=== PATIENT | male | born 1960 | race Caucasian/White ===

== ENCOUNTER 2017-03-28 10:13 | Emergency (ER) | payer OTHER ==
[~2017-03-28] VITALS: Ht 180.3 cm; Wt 70.6 kg
[2017-03-28 10:15] VITALS: BP 120/74
[2017-03-28] MEDS ORDERED: DIPH,PERTUSS(ACELL),TET VAC/PF 0.5 ML IM-VACC ONE ×2 (11:00→11:05)
[2017-03-28 11:55] LABS: HIV 1&2 ANTIBODY SCREEN Nonreactive (Nonreactive); HIV-1 p24 ANTIGEN Nonreactive (Nonreactive)
[2017-03-29 07:44] LABS: HEP B SURF. AB < 3.1 mIU/mL (0.0-10.0)
[2017-03-29 08:21] LABS: HEPATITIS C VIRUS ANTIBODY Nonreactive (Nonreactive)
[2017-04-13] MEDS ORDERED: PANT40TA3 PO (08:20)
[2017-04-13] MEDS ORDERED: HYDR-3240 PO (08:22)
== END 2017-03-28 11:20 | disposition home or self-care (01) ==
LOC: ED 11:13
DX: S61.234A Puncture wound without foreign body of right ring finger without damage to nail, initial encounter (principal); W26.8XXA Contact with other sharp object(s), not elsewhere classified, initial encounter; Y93.89 Activity, other specified; Y92.89 Other specified places as the place of occurrence of the external cause; Y99.8 Other external cause status; J44.9 Chronic obstructive pulmonary disease, unspecified
CPT/HCPCS: 36415; 86703; 86705; 86706; 86803; 87340; 87899; 90471; 90715; 99284; G0435

== ENCOUNTER 2019-02-27 18:43 | Emergency (ER) | payer SELFPAY ==
[~2019-02-27] VITALS: Ht 180.3 cm; Wt 77.6 kg
[~2019-02-27 18:43] MED LIST: HYDR-3240 PO; PANT40TA3 PO
[2019-02-27 19:12] LABS: BASOPHILS # (AUTO) 0.05 x10^3/uL (0-0.1); BASOPHILS % (AUTO) 1 % (0-1); EOSINOPHILS % (AUTO) 1 % (1-7); LYMPHOCYTES # (AUTO) 3.15 x10^3/uL (1-3.4); LYMPHOCYTES % (AUTO) 40 % (22-44); MD NO; MEAN CORPUSCULAR HEMOGLOBIN 31.3 pg (27.5-34.5); MEAN CORPUSCULAR HGB CONC 34.1 g/dL (33.2-36.2); MEAN CORPUSCULAR VOLUME 91.8 fL (81-97); MEAN PLATELET VOLUME 7.4 fL (7.4-10.4); MONOCYTES # (AUTO) 0.65 x10^3/uL (0.2-0.8); MONOCYTES % (AUTO) 8 % (2-9); NEUTROPHILS # (AUTO) 3.98 x10^3/uL (1.8-6.8); NEUTROPHILS % (AUTO) 50 % (42-75); PLATELET COUNT 361 x10^3/uL (130-400); RED BLOOD COUNT 4.71 x10^6/uL (4.38-5.82); RED CELL DISTRIBUTION WIDTH 14.9 % (9.4-14.8)
[2019-02-27 19:22] LABS: ALANINE AMINOTRANSFERASE 25 U/L (12-78); ALBUMIN 3.5 g/dL (3.4-5.0); ANION GAP 3 mmol/L (5-15); CALCIUM 8.6 mg/dL (8.5-10.1); CHLORIDE 107 mmol/L (98-107); CREATININE 0.85 mg/dL (0.7-1.3)
[2019-02-27 19:24] LABS: ALKALINE PHOSPHATASE 81 U/L (45-117); BILIRUBIN,TOTAL 0.1 mg/dL (0.2-1.0); TOTAL PROTEIN 7.3 g/dL (6.4-8.2)
--- NOTE | 2019-02-27 19:30 | NUR ---
PT TO ROOM FROM LOBBY
[2019-02-27 19:36] LABS: MICROSCOPIC NOT IND
[2019-02-27 19:40] LABS: CULTURE INDICATED? NO
--- NOTE | 2019-02-27 19:41 | NUR ---
PT PRESENTS TO ED STATING "[facility] SW[facility]LLEN LIVER LAST WEEK BUT I DIDN'T WANT TO STAY" - C/O RIGHT UPPER ABD PAIN RADIATING TO RIGHT UPPER RIBCAGE AND RIGHT MIDLINE BACK. SX ONSET 2 WEEKS AGO. PT DENIES INJURY/TRAUMA. DENIES HX CIRRHOSIS, HEPATITIS. STATES HE IS NOT A HEAVY DRINKER, "USED TO BE"; TWO COCKTAILS YESETERDAY. PT STATES [facility] TOLD [facility] HE HAD PANCREATITIS. PT ATTACHED TO ALL MONITORS. S/O AT BEDSIDE. CALL LIGHT IN REACH. AWAITING US AND UA RESULTS AT THIS TIME.
--- NOTE | 2019-02-27 20:00 | NUR ---
PT TO US AT THIS TIME.
[2019-02-27] MEDS ORDERED: MAALOX/HYOSCYAMINE/LIDOCAINE 45 ML BTL ONE (20:44)
[2019-02-27] MEDS ORDERED: MAALOX/HYOSCYAMINE/LIDOCAINE 45 ML BTL PO ONE (21:00)
--- NOTE | 2019-02-27 21:00 | NUR ---
pt medicated per emar, tolerated well. pt is a&o, resps even and unlabored, nadn. awaiting further orders at this time.
[2019-02-27 22:00] VITALS: BP 100/67
--- NOTE | 2019-02-27 22:10 | NUR ---
cxr was not read by radiology at time of dc, xray read by provider prior to dc. pt given dc instructions and script, educated regarding rx for prilosec and zofran. pt a&o, resps even and unlabored. pt amb to dc desk with steady gait, no complaint at dc. no n/v at dc. all questions answered.
== END 2019-02-27 22:09 | disposition home or self-care (01) ==
LOC: ED 20:23
DX: K29.20 Alcoholic gastritis without bleeding (principal); F10.10 Alcohol abuse, uncomplicated; J44.9 Chronic obstructive pulmonary disease, unspecified
CPT/HCPCS: 36415; 71046; 76700; 80053; 81003; 83690; 85025; 93005; 99284

== ENCOUNTER 2019-09-17 11:02 | Emergency (ER) | payer OTHER ==
[~2019-09-17] VITALS: Ht 180.3 cm; Wt 77.3 kg
[2019-09-17 11:05] VITALS: BP 121/73
[2019-09-17 11:55] LABS: BASOPHILS # (AUTO) 0.04 x10^3/uL (0-0.1); BASOPHILS % (AUTO) 1 % (0-1); EOSINOPHILS # (AUTO) 0.07 x10^3/uL (0-0.4); EOSINOPHILS % (AUTO) 1 % (1-7); LYMPHOCYTES # (AUTO) 1.92 x10^3/uL (1-3.4); LYMPHOCYTES % (AUTO) 24 % (22-44); MD NO; MEAN CORPUSCULAR HEMOGLOBIN 31.5 pg (27.5-34.5); MEAN CORPUSCULAR HGB CONC 33.2 g/dL (33.2-36.2); MEAN CORPUSCULAR VOLUME 94.8 fL (81-97); MEAN PLATELET VOLUME 7.8 fL (7.4-10.4); MONOCYTES # (AUTO) 0.73 x10^3/uL (0.2-0.8); MONOCYTES % (AUTO) 9 % (2-9); NEUTROPHILS # (AUTO) 5.13 x10^3/uL (1.8-6.8); NEUTROPHILS % (AUTO) 65 % (42-75); PLATELET COUNT 328 x10^3/uL (130-400); RED BLOOD COUNT 4.65 x10^6/uL (4.38-5.82); RED CELL DISTRIBUTION WIDTH 14.1 % (9.4-14.8)
[2019-09-17] MEDS ORDERED: NEOSPORIN OINT. PKT 1 PACKET ONE (11:55)
== END 2019-09-17 12:58 | disposition home or self-care (01) ==
LOC: ED 12:50
DX: S60.311A Abrasion of right thumb, initial encounter (principal); L03.011 Cellulitis of right finger; J44.9 Chronic obstructive pulmonary disease, unspecified; F17.210 Nicotine dependence, cigarettes, uncomplicated; X58.XXXA Exposure to other specified factors, initial encounter; Y93.89 Activity, other specified; Y92.89 Other specified places as the place of occurrence of the external cause; Y99.8 Other external cause status
CPT/HCPCS: 29130; 36415; 85025; 99284

== ENCOUNTER 2019-11-30 19:28 | Emergency (ER) | payer OTHER ==
[~2019-11-30] VITALS: Ht 180.3 cm; Wt 80.3 kg
[2019-11-30 19:49] VITALS: BP 118/80
== END 2019-11-30 20:41 | disposition home or self-care (01) ==
LOC: ED 20:30
DX: K08.89 Other specified disorders of teeth and supporting structures (principal); F17.210 Nicotine dependence, cigarettes, uncomplicated
CPT/HCPCS: 99283; 99406

== ENCOUNTER 2019-12-13 10:11 | Emergency (ER) | payer SELFPAY ==
[~2019-12-13] VITALS: Ht 180.3 cm; Wt 77.9 kg
--- NOTE | 2019-12-13 11:09 | NUR ---
PT AMBULATED TO ROOM 35 PER PEDIS. PT C/O DENTAL PAIN. PT HAS BEEN TREATED WITH PCN FOR THIS TOOTH PAIN, BUT HAS BEEN UNABLE TO PAY FOR A DENTAL VISIT. PT PLANS TO VISIT DENTIST WHEN HIS TAX MONEY COMES IN. PT IS A/OX4, APPEARS IN [facility], ONLY HEALTH HISTORY IS PEPTIC ULCERS. PT WAS GIVEN NORCO FOR THIS PAIN, BUT DOES NOT TAKE IT. PT IS REQUESTING ANTIBIOTICS ONLY HE THINKS MOTRIN HAS BEEN WORKING EFFECTIVELY FOR HIS PAIN. PT AT BEDSIDE. MD IN TO ASSESS PATIENT AND DISCUSS POC. MD DISCUSSED NUMEROUS OPTIONS OF PLACES THAT CAN HELP WITH HIS TOOTH PROBLEM AND HELP WITH PAYING FOR ANTIBIOTIC. MD WILL GIVE FIRST DOSE OF ANTIBIOTIC IN ED AND SEND HOME PRESCRIPTION. PT VERBALIZES UNDERSTANDING OF POC, AND AGREES WITH POC.
[2019-12-13] MEDS ORDERED: PANT40GR PO (11:15)
[2019-12-13] MEDS ORDERED: CLINDAMYCIN 300 MG CAPSULE ONE (11:19)
[2019-12-13 11:29] VITALS: BP 140/88
[2019-12-13] MEDS ORDERED: CLINDAMYCIN 300 MG CAPSULE PO ONE (11:30)
--- NOTE | 2019-12-13 11:31 | NUR ---
PT GIVEN ANTIBIOTIC. RN DISCUSSED RATIONALE AND SIDE EFFECTS OF MEDICATIONS. ENCOURAGED PATIENT TO TAKE ANTIBIOTIC WITH FOOD DUE TO HIS ULCER PROBLEMS. DISCHARGE INSTRUCTIONS GIVEN TO PATIENT WITH ONE PRESCRIPTION. PT TEACHES BACK USE OF CLINDAMYCIN AND POSSIBLE SIDE EFFECTS. PT TEACHES BACK IMPORTANCE OF TAKING MEDICATION WITH FOOD AND TO TAKE ALL MEDICATION UNTIL FINISHED. PT TEACHES BACK ON PUBLIC INFORMATION THAT WAS DISCUSSED FOR HELP WITH PRESCRIPTION COST AND DENTAL PLACES. PT AMBULATED OUT ED PER PEDIS WITH STRONG STEADY GAIT ACCOMPANIED BY .
== END 2019-12-13 11:31 | disposition home or self-care (01) ==
LOC: ED 11:07
DX: K02.9 Dental caries, unspecified (principal); K08.89 Other specified disorders of teeth and supporting structures; J44.9 Chronic obstructive pulmonary disease, unspecified
CPT/HCPCS: 99283

== ENCOUNTER 2020-01-17 12:13 | Emergency (ER) | payer SELFPAY ==
[~2020-01-17] VITALS: Ht 180.3 cm; Wt 79.7 kg
[~2020-01-17 12:13] MED LIST changes: +PANT40GR PO
--- NOTE | 2020-01-17 12:41 | NUR ---
Pt to ER today for 2 wks of RUQ/LUQ ABD pain worse on left & 2 days of lightheadedness. Pt has hx GERD & perforated ulcer 3yrs ago. EKG done in triage, await ER MD porter.
--- NOTE | 2020-01-17 13:35 | NUR ---
ERP AT BS.
[2020-01-17] MEDS ORDERED: DICYCLOMINE 20 MG TABLET ONE (13:53)
[2020-01-17] MEDS ORDERED: MAALOX/HYOSCYAMINE/LIDOCAINE 45 ML BTL ONE (13:53)
[2020-01-17] MEDS ORDERED: DICYCLOMINE 20 MG TABLET PO ONE (14:00)
[2020-01-17] MEDS ORDERED: MAALOX/HYOSCYAMINE/LIDOCAINE 45 ML BTL PO ONE (14:00)
--- NOTE | 2020-01-17 14:00 | NUR ---
PT MEDICATED PER ORDERS. UNDERSTANDS POC. SIGNIFICANT OTHER AT BS.
[2020-01-17 14:06] LABS: BASOPHILS # (AUTO) 0.04 x10^3/uL (0-0.1); BASOPHILS % (AUTO) 1 % (0-1); EOSINOPHILS # (AUTO) 0.09 x10^3/uL (0-0.4); EOSINOPHILS % (AUTO) 1 % (1-7); LYMPHOCYTES # (AUTO) 2.52 x10^3/uL (1-3.4); LYMPHOCYTES % (AUTO) 34 % (22-44); MD NO; MEAN CORPUSCULAR HEMOGLOBIN 31.8 pg (27.5-34.5); MEAN CORPUSCULAR HGB CONC 33.6 g/dL (33.2-36.2); MEAN CORPUSCULAR VOLUME 94.5 fL (81-97); MEAN PLATELET VOLUME 7.9 fL (7.4-10.4); MONOCYTES % (AUTO) 8 % (2-9); NEUTROPHILS # (AUTO) 4.13 x10^3/uL (1.8-6.8); NEUTROPHILS % (AUTO) 56 % (42-75); PLATELET COUNT 318 x10^3/uL (130-400); RED BLOOD COUNT 5.03 x10^6/uL (4.38-5.82); RED CELL DISTRIBUTION WIDTH 13.4 % (9.4-14.8)
[2020-01-17 14:17] LABS: MICROSCOPIC NOT IND
[2020-01-17 14:19] LABS: ALANINE AMINOTRANSFERASE 23 U/L (12-78); ALBUMIN 3.6 g/dL (3.4-5.0); ANION GAP 5 mmol/L (5-15); CHLORIDE 107 mmol/L (98-107); CREATININE 0.99 mg/dL (0.7-1.3)
[2020-01-17 14:21] LABS: CULTURE INDICATED? NO
[2020-01-17 14:21] LABS: ALKALINE PHOSPHATASE 71 U/L (45-117); BILIRUBIN,TOTAL 0.2 mg/dL (0.2-1.0); TOTAL PROTEIN 7.6 g/dL (6.4-8.2)
[2020-01-17 14:30] VITALS: BP 93/77
--- NOTE | 2020-01-17 14:57 | NUR ---
Patient/Caregiver given discharge instructions and they have confirmed that they understand the instructions. Patient ambulatory with steady gait.
== END 2020-01-17 14:58 | disposition home or self-care (01) ==
LOC: ED 12:57
DX: R10.84 Generalized abdominal pain (principal); I49.3 Ventricular premature depolarization; J44.9 Chronic obstructive pulmonary disease, unspecified
CPT/HCPCS: 36415; 80053; 81003; 83690; 85025; 93005; 99284